=== PATIENT | male | born 1985 | race African-American/Black ===

== ENCOUNTER 2016-08-15 02:57 | Emergency (ER) | payer MEDICAID ==
[~2016-08-15] VITALS: Ht 162.6 cm; Wt 63.0 kg
[2016-08-15] MEDS ORDERED: IBUPROFEN 800MG TABLET PO ONE (03:45)
[2016-08-15 05:40] VITALS: BP 129/67
== END 2016-08-15 06:15 | disposition home or self-care (01) ==
LOC: ER 02:57
DX: S82.54XA Nondisplaced fracture of medial malleolus of right tibia, initial encounter for closed fracture (principal); F17.210 Nicotine dependence, cigarettes, uncomplicated; F12.10 Cannabis abuse, uncomplicated; W19.XXXA Unspecified fall, initial encounter; Y93.89 Activity, other specified; Y92.89 Other specified places as the place of occurrence of the external cause; Y99.8 Other external cause status
CPT/HCPCS: 29515; 73590; 73610; 99284

== ENCOUNTER 2016-08-17 11:18 | Emergency (ER) | payer MEDICAID ==
[~2016-08-17] VITALS: Ht 170.2 cm; Wt 70.0 kg
[2016-08-17 11:19] VITALS: BP 140/70
[2016-08-17] MEDS ORDERED: IBUPROFEN 800MG TABLET PO ONE (12:15)
== END 2016-08-17 12:45 | disposition home or self-care (01) ==
LOC: ER 11:19
DX: M25.571 Pain in right ankle and joints of right foot (principal); F20.9 Schizophrenia, unspecified; F12.10 Cannabis abuse, uncomplicated
CPT/HCPCS: 29515; 99283; Z7610

== ENCOUNTER 2016-09-03 03:34 | Emergency (ER) | payer MEDICAID ==
[~2016-09-03] VITALS: Ht 162.6 cm; Wt 68.0 kg
[2016-09-03 08:08] LABS: CLARITY URINE CLEAR (CLEAR); COLOR URINE YELLOW (YELLOW); GLUCOSE URINE NEGATIVE (NEGATIVE); KETONES URINE 2+ (NEGATIVE); LEUKOCYTE ESTERASE URINE NEGATIVE (NEGATIVE); NITRITE URINE NEGATIVE (NEGATIVE); OCCULT BLOOD URINE NEGATIVE (NEGATIVE); PH URINE 5.5 (4.5-8.0); PROTEIN URINE TRACE (NEGATIVE); SPECIFIC GRAVITY URINE 1.031 (1.005-1.030)
[2016-09-03 08:09] LABS: BACTERIA URINE NONE SEEN; CALCIUM PHOSPHATE CRYSTALS UR NONE SEEN /lpf; RBC URINE 0-2 /hpf (0-2); SQUAMOUS EPITHELIAL CELL URINE NONE SEEN /lpf (RARE/1+); WAXY CASTS URINE NONE SEEN /lpf; WBC URINE NONE SEEN /hpf (0-2); YEAST URINE NONE SEEN
[2016-09-03] MEDS ORDERED: IBUPROFEN 600MG TABLET PO ONE (08:45)
[2016-09-03 09:03] VITALS: BP 123/69
== END 2016-09-03 09:06 | disposition home or self-care (01) ==
LOC: ER 03:35
DX: S82.54XA Nondisplaced fracture of medial malleolus of right tibia, initial encounter for closed fracture (principal); N47.7 Other inflammatory diseases of prepuce; F20.9 Schizophrenia, unspecified; F17.210 Nicotine dependence, cigarettes, uncomplicated; F12.10 Cannabis abuse, uncomplicated; X58.XXXA Exposure to other specified factors, initial encounter; Y93.89 Activity, other specified; Y92.89 Other specified places as the place of occurrence of the external cause; Y99.8 Other external cause status
CPT/HCPCS: 81001; 99283; Z7610

== ENCOUNTER 2018-12-05 18:11 | Emergency (ER) | payer MEDICAID ==
[~2018-12-05] VITALS: Ht 162.6 cm; Wt 63.0 kg
[2018-12-05 20:01] VITALS: BP 133/78
== END 2018-12-05 22:30 | disposition home or self-care (01) ==
LOC: ER 22:28
DX: B00.89 Other herpesviral infection (principal); F17.200 Nicotine dependence, unspecified, uncomplicated; Z98.890 Other specified postprocedural states
CPT/HCPCS: 86694; 86695; 86696; 99283

== ENCOUNTER 2019-01-03 07:25 | Emergency (ER) | payer MEDICAID ==
[~2019-01-03] VITALS: Ht 177.8 cm; Wt 70.0 kg
[2019-01-03] MEDS ORDERED: LIDOCAINE HCL/EPINEPHRINE 1%-EPI 1:100,000 20 ML VIAL ONE (07:59)
[2019-01-03] MEDS ORDERED: LIDOCAINE 1%/EPI 1:100,000 10 ML VIAL IJ ONE (08:00)
[2019-01-03] MEDS ORDERED: BACITRACIN ZINC OINT UDPKT TOP ONE (08:00)
[2019-01-03] MEDS ORDERED: TETANUS, DIPHTHERIA, PERTUSSIS VAC/PF 0.5ML (>7YR OLD) IM ONE (08:00)
[2019-01-03] MEDS: BACITRACIN 15GM TUBE TOP NR ×2 (08:30→09:46)
[2019-01-03 09:25] VITALS: BP 123/80
== END 2019-01-03 09:59 | disposition left against medical advice (07) ==
LOC: ER 07:35
DX: S01.81XA Laceration without foreign body of other part of head, initial encounter (principal); F20.9 Schizophrenia, unspecified; Y08.89XA Assault by other specified means, initial encounter; Y93.89 Activity, other specified; Y92.89 Other specified places as the place of occurrence of the external cause; Y99.8 Other external cause status
CPT/HCPCS: 12013; 70450; 70486; 90471; 90715; 99284; J3490

== ENCOUNTER 2021-01-13 15:46 | Emergency (ER) | payer MEDICAID ==
[~2021-01-13] VITALS: Ht 162.6 cm; Wt 62.0 kg
[2021-01-13] MEDS ORDERED: XLV MT (17:57)
[2021-01-13] MEDS ORDERED: AZITHROMYCIN 500 MG TABLET PO ONE (18:00)
[2021-01-13] MEDS ORDERED: CEFTRIAXONE SODIUM 500 MG/VIAL IM ONE (18:00)
[2021-01-13] MEDS ORDERED: ONDANSETRON 4MG ODT PO ONE (18:00)
[2021-01-13] MEDS ORDERED: IBUPROFEN 600MG TABLET PO ONE (18:00)
[2021-01-13 18:29] VITALS: BP 141/76
== END 2021-01-13 18:30 | disposition home or self-care (01) ==
LOC: ER 15:46
DX: N34.2 Other urethritis (principal)
CPT/HCPCS: 96372; 99284; J0696; Q0162

== ENCOUNTER 2022-06-08 16:56 | Emergency (ER) | payer MEDICAID ==
[~2022-06-08] VITALS: Ht 172.7 cm; Wt 78.0 kg
[~2022-06-08 16:56] MED LIST: XLV MT
[2022-06-08 17:06] VITALS: BP 112/68
== END 2022-06-08 18:35 | disposition home or self-care (01) ==
LOC: ER 16:56
DX: Z04.89 Encounter for examination and observation for other specified reasons (principal)
CPT/HCPCS: 99281